=== PATIENT | male | born 1935 | race Caucasian/White ===

== ENCOUNTER 2016-05-20 10:33 | Day surgery (SDC) | payer MEDICARE, OTHER ==
[2016-05-20] VITALS (10 sets, daily range): BP systolic 124–157; BP diastolic 60–76; PULSE 53–78; RESP 14–18; O2SAT 94–100
[~2016-05-20] VITALS: Ht 193 cm; Wt 115.6 kg
[~2016-05-20 10:33] MED LIST: AMLO10TA3 PO; ASCO100089 PO; ASPI-973 PO; CALC-890 PO; CARV25TA2 PO; CHOL100043 PO; FURO80TA83 PO; GLPZ5T PO; LIP40 PO; MEGAKRILL PO; TERA2CAP4 PO; UBID100C PO; VIT1TABL83 PO; WARF5TAB7 PO; ZYL100 PO
[2016-05-20] MEDS ORDERED: Ondansetron 2 mg/mL 2 mL Inj ONE (10:34)
[2016-05-20] MEDS ORDERED: EPHEDrine/NS 5 mg/mL 5 mL Syringe ONE (10:34)
[2016-05-20] MEDS ORDERED: fentaNYL-PF 50 mCg/mL 2 mL Inj ONE (10:34)
[2016-05-20] MEDS ORDERED: Dexamethasone 4 mg/mL Inj ONE (10:34)
[2016-05-20] MEDS ORDERED: Propofol 10,000 mCg/mL 20 mL Inj ONE (10:34)
[2016-05-20] MEDS ORDERED: MetoCLOpramide 5 mg/mL 2 mL Inj ONE (10:34)
[2016-05-20] MEDS ORDERED: hydrALAZINE 20 mg/mL Inj ONE (10:34)
[2016-05-20] MEDS: Lactated Ringer's 1,000 ML IV SCH ×3 (11:15→12:58)
[2016-05-20] MEDS ORDERED: CeFAZolin Inj 2 gm / 50mL D5W IV ONE (11:41)
[2016-05-20] MEDS ORDERED: WARF5TAB PO (11:54)
[2016-05-20] MEDS ORDERED: hydrOXYzine Inj 25 MG/1 mL SDV IM ONE (12:41)
[2016-05-20] MEDS ORDERED: EPHEDrine Sulfate 50 mg/mL Inj ONE (12:42)
[2016-05-20] MEDS: CeFAZolin Inj 2 GM in IV Premix 1 EACH IV ONE ×2 (12:42→12:58)
[2016-05-20] MEDS ORDERED: MetoCLOpramide 5 mg/mL 2 mL Inj IVPUSH PRN (13:05)
[2016-05-20] MEDS ORDERED: Phenylephrine 10,000 mCg/mL Inj IVPUSH PRN (13:05)
[2016-05-20] MEDS ORDERED: Lactated Ringer's 1,000 ML IV SCH (13:05)
[2016-05-20] MEDS ORDERED: Lactated Ringer's 500 ML IV PRN (13:05)
[2016-05-20] MEDS ORDERED: fentaNYL-PF 50 mCg/mL 2 mL Inj IVPUSH PRN (13:05)
[2016-05-20] MEDS ORDERED: EPHEDrine Sulfate 50 mg/mL Inj IVPUSH PRN (13:05)
[2016-05-20] MEDS ORDERED: Atropine 0.4 mg/mL Inj IVPUSH PRN (13:05)
[2016-05-20] MEDS ORDERED: Ondansetron 2 mg/mL 2 mL Inj IVPUSH PRN (13:05)
[2016-05-20] MEDS ORDERED: hydrALAZINE 20 mg/mL Inj IVPUSH PRN (13:05)
[2016-05-20] MEDS ORDERED: Labetalol 5 mg/mL 4 mL Inj IV PRN (13:05)
--- NOTE | 2016-05-20 13:15 | PCM.HPANE ---
Patient Data Surgeon Admitting Provider: Attending Provider:Rupa Grady MD Primary Care Physician:Nader Romero MD Other Provider:[facility] Reason for Visit Bladder Tumor Ht/WT & BMI Height (Feet): 6 Height (Inches): 4 Weight (Kilograms): 115.6 Body Mass Index 31.00 Allergies Coded Allergies: ioversol (Verified Allergy, Severe, ANAPHYLAXIS, 05/15/16) codeine (Verified Allergy, Unknown, UNKNOWN, 05/15/16) iodine (Verified Allergy, Unknown, UNKNOWN, 05/15/16) iohexol (Verified Allergy, Unknown, UNKNOWN, 05/15/16) lactose (Verified Adverse Reaction, Severe, LACTOSE INTOLERANT, 05/15/16) Past Anesthesia History Anesthesia History: Denies:: Anesthesia Reactions, Malignant Hyperthermia Diabetes History Hx Diabetes?: Yes Type of Diabetes: Type II Glycemic Control: Oral Medication Current Bedside Blood Glucose: 128 MRSA MRSA: No Medications Blood Thinner: Aspirin and Coumadin Last Dose Blood Thinner: May 14, 2016 Hypertension Medication: Yes (LASIX,AMLODIPINE,TERAZOSIN) Home Meds Incl Beta Aleksandar: Yes Date Beta Aleksandar Taken: May 20, 2016 Time Beta Aleksandar Taken: 0700 Reported Medications Warfarin Sodium (Coumadin)5 Mg Tablet2.5 Mg PO WEDS, SUN #24 05/20/16 Terazosin 2 Mg Capsule2 Mg PO AM Ref 0 05/15/16 Cholecalciferol (Vitamin D3) (Vitamin D)1,000 Unit Tablet1,000 Unit PO DAILY #1 BOTTLE Ref 0 05/01/15 Terazosin 2 Mg Capsule4 Mg PO HS Ref 0 05/01/15 [Athenix] No Conflict Check1 Capsule PO DAILY 500MG 05/01/15 Atorvastatin (Lipitor)40 Mg Xkdvtc00 Mg PO DAILY Ref 0 05/01/15 Glipizide 5 Mg Tablet2.5 Mg PO DAILY 30 Days 05/01/15 Furosemide (Lasix)80 Mg Cyviec61 Mg PO DAILY 30 Days Ref 0 05/01/15 Ubidecarenone (Coenzyme Q10)100 Mg Zodemlk604 Mg PO DAILY 05/01/15 Carvedilol 25 Mg Xdgxax34 Mg PO BID Ref 0 05/01/15 Calcium Carbonate/Vitamin D3 (Calcium 600 + Vit D3 Tablet)1 Each Tablet1 Each PO BID 05/01/15 Vit B Comp/C/FA/Iron/Vit E (Vitamin B Complex Tablet)1 Each Tablet1 Each PO DAILY 05/01/15 Aspirin 81 Mg Iskdzt79 Mg PO DAILY Ref 0 05/01/15 Amlodipine 10 Mg Kqbacb77 Mg PO DAILY Ref 0 05/01/15 Allopurinol 100 Mg Nqiwft378 Mg PO DAILY Ref 0 05/01/15 Warfarin Sodium 5 Mg Tablet5 Mg PO 5XDAYS WEEK 30 Days Ref 0 05/01/15 Discontinued Reported Medications Ascorbic Acid (Vitamin C)1,000 Mg Tab.chew1,000 Mg PO DAILY Ref 0 05/01/15 History History of ENT Problems?: No Hx of Heart Problems?: Yes Cardiovascular History: Positive for:: Abdominal Aortic Aneurism (ASCENDING AORTA DILATED UP TO 4CM) Atrial Fibrillation (HX A FIB & FLUTTER) Cardiac Surgery (HEART CATH X2 2000, 2010 W/ STENTING) Chest Pain Edema (CHRONIC, PEDAL) Hypertension (HYPERLIPIDEMIA) Irregular Heartbeat (HX A FIB/FLUTTER) Peripheral Vascular (PAD) Valvular Heart Disease (MILD-MOD MR,MILD TR) Denies:: Heart Murmur (ECHO 11/2012 EF 60-65%) Hx of Respiratory Problem?: Yes Respiratory History: Positive for:: COPD (PFT 05/2011 SHOWS MOD. RESTRICTIVE DISEASE) Use of C-PAP Machine (JEFFREY+ W/ CPAP SLEEP STUDY 08/2002) Hx Neurologic Problems?: Yes Hx of GI Problems?: No Hx of Problems?: Yes Genitourinary History: Denies:: HX of Hemodialysis (HX CHRONIC RENAL INSUFFICIENCY) Other Pertinent History: S/P CYSTO/TURBT BLADDER TUMOR=CURRENT PROBLEM Male Hx: Positive for:: Prostate Problems (?HX PROSTATE CA?) Denies:: Scrotal Mass Testicular Surgery Skin History: Positive for:: History Skin Disorders? (S/P EXC FIBROID TUMORS FROM HEAD & FOOT) Denies:: Pressure Ulcers Hx Musculoskeletal Problems?: Yes Musculoskeletal History: Positive for:: Musculoskeletal Trauma (HX FX LEG) Denies:: Back Injury (C/OF BACK PAIN) Hx of Psycho/Social Problems?: Yes Psycho Social History: Positive for:: Anxiety Hx Surgeries?: Yes (HEART CATH/STENTING X2,EXC FIBROID TUMORS HEAD-FOOT,CYSTO/ TURBT) Hx Any Other Health Problems?: Yes Other History: Positive for:: Cancer (BLADDER, ??PROSTATE) Hospitalization (CARDIAC) Denies:: Endocrine Disease Thyroid Disease History Blood Transfusions: Denies:: Blood Transfusions Hx Diabetes: YesBedside Blood Glucose: 128 Hx Alcohol Use: No Smoking Status: Never Smoker Have You Smoked inLast 12 mo: No Stop/Bang S-Snoring: Do You Snore Loudly: No T-Tired: feel tired, fatigued: Yes O-Obsered: Observed not breath: No P-Blood Pressure: treated: Yes B- Body Mass Index > 35 kg/m2: No A- Age over 50: Yes N- Neck Large Circumference: Yes G- Gender Male: Yes JEFFREY Total Score: 5 Risk Assessment Category Category 1A: Patient has history of documented sleep apnea, and HAS NOT received any narcotic, sedative or anesthesia administration during this stay. Category 1B: Patient has history of documented sleep apnea, and HAS received any narcotic , sedative or anesthesia administration during this stay Category 2: Patient has SUSPECTED Obstructive Sleep Apnea, and HAS received any narcotic , sedative or anesthesia administration during this stay. Category 3: Patient has SUSPECTED Obstructive Sleep Apnea and HAS NOT received narcotic, sedative or anesthesia administration during this stay. Category 4: Outpatient in Procedural Areas with known sleep apnea or who screen positive for High Risk via the STOP/BANG questionnaire. Exam Exam Vital Signs Vital Signs Date Time Temp Pulse Resp B/P Pulse Ox O2 Delivery O2 Flow Rate FiO2 05/20/16 11:54 CPAP/BIPAP 05/20/16 11:18 35.6 69 18 151/76 97 Room Air General Appearance: Alert, Oriented X3, Cooperative, No Acute Distress HEENT/AIRWAY: MP 2, Neck Movement (FROM), Mouth Opening (3 FBMO) Lungs: Clear to Auscultation, Normal Air Movement Heart: Exam Unremarkable, Regular Rate/Rhythm, No Murmurs/Rubs/Gallops Meds/Labs/Diagnostics Admission Meds Current Medications Lactated Ringer's (Lr) 1,000 ml @ 120 mls/hr Q8H20M IV Last administered on t 11:15; Start 05/20/16 at 05:00; Stop 05/20/16 at 13:19 Bedside Blood Glucose: 128 Plan Impression Patient chart reviewed, patient interviewed and anesthestic plan with risks, benefits, and alternatives discussed, and informed consent obtained. NPO Status: 1700 05/19/16 ASA Physical Status: ASA3 Severe Disease (A fib) Anesthetic Plan: GA Bene/Risks/Altern/Consents: Yes HP Complete Prior to Induction: Yes Other Didn't want spinal Nader Olivo MD May 20, 2016 12:13
[2016-05-20] MEDS ORDERED: HYDROcodone-APAP 5-325 mg Tablet PO PRN (13:35)
--- NOTE | 2016-05-20 14:30 | PCM.ANEP1 ---
Post Anesthesia Phase 1 PACU Phase 1 Assessment Vital Signs Vital Signs Date Time Temp Pulse Resp B/P Pulse Ox O2 Delivery O2 Flow Rate FiO2 05/20/16 14:15 36.8 78 18 143/76 97 Room Air 05/20/16 14:02 36.2 54 16 128/60 94 Room Air 05/20/16 13:58 68 17 137/75 96 Room Air 05/20/16 13:50 63 14 144/68 98 Room Air 05/20/16 13:45 70 17 132/63 100 Simple Mask 8 05/20/16 13:40 53 14 128/71 100 Simple Mask 8 05/20/16 13:35 55 15 124/63 100 Simple Mask 8 05/20/16 13:30 36.1 129/61 05/20/16 11:54 CPAP/BIPAP 05/20/16 11:18 35.6 69 18 151/76 97 Room Air Anesthetic Administered: GA Level of Alertness: Awake, talking KELLY's with Equal Strength: Yes Pain: No Nausea or Vomiting: No Oxygen Delivery: Simple Mask Lungs: Clear to Auscultation, Normal Air Movement Dermatome Level: Full Sensation Nader Olivo MD May 20, 2016 14:30
--- NOTE | 2016-05-20 14:30 | PCM.ANEP2 ---
Post Anesthesia Evaluation ASA/CMS Post Anesthesia VS in Patient's Normal Range?: Yes Resp Stable; Airway Patent?: Yes CV Function & Hydration Stable: Yes Mental Status Recovered?: Yes Pain control Satisfactory?: Yes N/V Control Satisfactory?: Yes Nader Olivo MD May 20, 2016 14:30
--- NOTE | 2016-05-20 15:30 | OP ---
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 POSTOPERATIVE DIAGNOSIS(ES): Transitional cell carcinoma of the bladder. PROCEDURE: Cystoscopy, bladder biopsy and transurethral resection of bladder tumor. ANESTHESIA: General anesthetic, Dr. Olivo. DESCRIPTION OF PROCEDURE: Under general anesthetic, the patient placed in lithotomy position. Genitalia prepped and draped in a sterile manner. A 22-South Sudanese cystoscope was introduced through a normal anterior urethra. There was a bladder neck contracture present. On the posterior wall were two areas of erythema. Using the cup biopsy forceps, these areas were biopsied. The urethra was then dilated to 30-South Sudanese with Adele sounds. A 26-South Sudanese Cunningham type resectoscope was introduced into the bladder. The remaining tumor was resected and the base is cauterized. After removal of the specimen achieving hemostasis, it was elected not to leave a Ta catheter in place. The patient tolerated the procedure well and left the operating room in good condition.
--- NOTE | 2016-05-25 14:44 | PATH ---
SURGICAL PATHOLOGY Attending Physician:Rupa Grady MD () CASE STATUS: Signed Out PATIENT NAME: TITUS TAYLOR PID: [id number] : 1935 DATE COLLECTED:05/20/2016 00:00 SPECIMEN: Bladder, Biopsy CLINICAL HISTORY: BLADDER TUMOR 1). BLADDER CANCER TUMOR POSTERIOR WALL FINAL DIAGNOSIS: 1.BLADDER CANCER TUMOR, POSTERIOR WALL, BIOPSY: MILD CHRONIC ACTIVE CYSTITIS. No evidence of malignancy or dysplasia. ICD10 code Z85.51 GROSS DESCRIPTION: The specimen is received in one formalin filled container labeled with the patient's name, sublabeled "bladder tumor posterior wall" and consists of 2 portions of tissue which aggregate to 0.4 x 0.4 x 0.3 CM. The specimen is entirely submitted in one cassette. 05/21/2016 [facility] MICRO DESCRIPTION: See diagnosis. ICD-9 CODES: CPT CODES: 1: 86538 Electronically Signed Out Nicola Knox MD [facility] [address], [place] [address] Technical component performed at [facility], [facility] [address], [place], [address]
== END 2016-05-20 23:59 | disposition home or self-care (01) ==
LOC: SAS 10:33
PROVIDERS: ATTEND Urology
DX: N30.20 Other chronic cystitis without hematuria (principal); I25.10 Atherosclerotic heart disease of native coronary artery without angina pectoris; I71.4 Abdominal aortic aneurysm, without rupture; I12.9 Hypertensive chronic kidney disease with stage 1 through stage 4 chronic kidney disease, or unspecified chronic kidney disease; E11.22 Type 2 diabetes mellitus with diabetic chronic kidney disease; N18.9 Chronic kidney disease, unspecified; I44.0 Atrioventricular block, first degree; R00.1 Bradycardia, unspecified; G47.33 Obstructive sleep apnea (adult) (pediatric); J44.9 Chronic obstructive pulmonary disease, unspecified; I73.9 Peripheral vascular disease, unspecified; F41.9 Anxiety disorder, unspecified; E87.5 Hyperkalemia; Z85.46 Personal history of malignant neoplasm of prostate; Z95.5 Presence of coronary angioplasty implant and graft; Z79.82 Long term (current) use of aspirin; Z79.84 Long term (current) use of oral hypoglycemic drugs; Z79.01 Long term (current) use of anticoagulants; Z85.51 Personal history of malignant neoplasm of bladder
CPT/HCPCS: 52234; J0360; J0690; J1100; J1885; J2405; J2765; J3010; J3410; J7120

== ENCOUNTER 2016-10-21 10:23 | Day surgery (SDC) | payer MEDICARE, OTHER ==
[2016-10-21] VITALS (12 sets, daily range): BP systolic 128–149; BP diastolic 57–72; PULSE 58–95; RESP 14–16; O2SAT 95–100
[~2016-10-21] VITALS: Ht 193 cm; Wt 115.6 kg
[~2016-10-21 10:23] MED LIST changes: -ASCO100089 PO; -ASPI-973 PO; -CHOL100043 PO; +FUR20 PO; -FURO80TA83 PO; +GLIP2.5T2 PO; -GLPZ5T PO; -MEGAKRILL PO; -UBID100C PO; +VITAMIN C ROSE HIPS; +megakrill
[2016-10-21] MEDS ORDERED: MetoCLOpramide 5 mg/mL 2 mL Inj ONE (10:24)
[2016-10-21] MEDS ORDERED: fentaNYL-PF 50 mCg/mL 2 mL Inj ONE (10:24)
[2016-10-21] MEDS ORDERED: Dexamethasone 4 mg/mL Inj ONE (10:24)
[2016-10-21] MEDS ORDERED: Ondansetron 2 mg/mL 2 mL Inj ONE (10:24)
[2016-10-21] MEDS ORDERED: Propofol 10,000 mCg/mL 20 mL Inj ONE (10:24)
[2016-10-21] MEDS: Lactated Ringer's 1,000 ML IV SCH ×2 (10:51→13:08)
[2016-10-21 11:33] LABS: INR 1.04 ratio
--- NOTE | 2016-10-21 12:44 | PCM.HPANE ---
Patient Data Surgeon Admitting Provider: Attending Provider:Marissa Dhaliwal MD Primary Care Physician:Nader Romero MD Other Provider:[facility] Anest[facility] Reason for Visit Bladder Cancer Ht/WT & BMI Height (Feet): 6 Height (Inches): 4 Weight (Kilograms): 115.6 Body Mass Index 31.00 Allergies Coded Allergies: ioversol (Verified Allergy, Severe, ANAPHYLAXIS, 10/16/16) codeine (Verified Allergy, Unknown, UNKNOWN, 10/16/16) iodine (Verified Allergy, Unknown, UNKNOWN, 10/16/16) iohexol (Verified Allergy, Unknown, UNKNOWN, 10/16/16) lactose (Verified Adverse Reaction, Severe, LACTOSE INTOLERANT, 05/15/16) Past Anesthesia History Anesthesia History: Denies:: Abnormal Airway, Anesthesia Reactions (PONV hx), Difficult Intubation, Malignant Hyperthermia Diabetes History Hx Diabetes?: Yes Type of Diabetes: Type II Glycemic Control: Oral Medication Current Bedside Blood Glucose: 124 MRSA MRSA: No Medications Blood Thinner: Aspirin and Coumadin Hypertension Medication: Yes Home Meds Incl Beta Aleksandar: Yes Date Beta Aleksandar Taken: Oct 21, 2016 Time Beta Aleksandar Taken: 0700 Reported Medications Warfarin Sodium 5 Mg Tablet2.5 Mg PO wed, wed 30 Days Ref 0 10/16/16 Warfarin Sodium 5 Mg Tablet5 Mg PO 5xweekly 30 Days Ref 0 10/16/16 [vitamin c sybil hips] No Conflict Check1,000 Mg DAILY 10/16/16 Terazosin 2 Mg Capsule4 Mg PO HS Ref 0 10/16/16 Terazosin 2 Mg Capsule2 Mg PO QAM Ref 0 10/16/16 [megakrill] No Conflict Rpuap684 Mg DAILY 10/16/16 Atorvastatin (Lipitor)40 Mg Szhyqw93 Mg PO DAILY Ref 0 10/16/16 Glipizide ER 2.5 Mg Tab.er.242.5 Mg PO DAILY 10/16/16 Furosemide 20 Mg Cak185 Mg PO DAILY 30 Days Ref 0 10/16/16 Carvedilol 25 Mg Yqxajk24 Mg PO BID Ref 0 10/16/16 Calcium Carbonate/Vitamin D3 (Calcium 600 + Vit D3 Tablet)1 Each Tablet2 Each PO DAILY 10/16/16 Vit B Comp/C/FA/Iron/Vit E (Vitamin B Complex Tablet)1 Each Tablet1 Each PO DAILY 10/16/16 Amlodipine 10 Mg Lqatam52 Mg PO DAILY Ref 0 10/16/16 Allopurinol 100 Mg Etgytc831 Mg PO DAILY Ref 0 10/16/16 Discontinued Reported Medications Warfarin Sodium (Coumadin)5 Mg Tablet2.5 Mg PO WEDS, WED #24 05/20/16 Terazosin 2 Mg Capsule2 Mg PO AM Ref 0 05/15/16 Cholecalciferol (Vitamin D3) (Vitamin D)1,000 Unit Tablet1,000 Unit PO DAILY #1 BOTTLE Ref 0 05/01/15 Terazosin 2 Mg Capsule4 Mg PO HS Ref 0 05/01/15 [RF Arrays] No Conflict Check1 Capsule PO DAILY 500MG 05/01/15 Atorvastatin (Lipitor)40 Mg Cjzpno77 Mg PO DAILY Ref 0 05/01/15 Glipizide 5 Mg Tablet2.5 Mg PO DAILY 30 Days 05/01/15 Furosemide (Lasix)80 Mg Dehabe45 Mg PO DAILY 30 Days Ref 0 05/01/15 Ubidecarenone (Coenzyme Q10)100 Mg Tkhkxfs174 Mg PO DAILY 05/01/15 Carvedilol 25 Mg Abodcl08 Mg PO BID Ref 0 05/01/15 Calcium Carbonate/Vitamin D3 (Calcium 600 + Vit D3 Tablet)1 Each Tablet1 Each PO BID 05/01/15 Vit B Comp/C/FA/Iron/Vit E (Vitamin B Complex Tablet)1 Each Tablet1 Each PO DAILY 05/01/15 Aspirin 81 Mg Enbals39 Mg PO DAILY Ref 0 05/01/15 Amlodipine 10 Mg Qbakkc87 Mg PO DAILY Ref 0 05/01/15 Allopurinol 100 Mg Kxdeal962 Mg PO DAILY Ref 0 05/01/15 Warfarin Sodium 5 Mg Tablet5 Mg PO 5XDAYS WEEK 30 Days Ref 0 05/01/15 History History of ENT Problems?: No HEENT History: Denies:: Abnormal Airway Cataracts Difficult Intubation Dysphagia Glaucoma Hearing Problem Sinus Problem TMJ Denture Type: None Teeth Condition: Within Normal Limits Hx of Heart Problems?: Yes Cardiovascular History: Positive for:: Abdominal Aortic Aneurism (ASCENDING AORTA DILATED UP TO 4CM) Atrial Fibrillation (atrial flutter) Cardiac Surgery (2010- ) Chest Pain Edema (lower legs- ) Hypertension Irregular Heartbeat (a flutter ) Valvular Heart Disease (echo 2012- ef 60-65%) Denies:: Heart Murmur Other Cardiac History: pt has not been taking either coumadin or aspirin since onset of hematuria- 08/2016 Other History/Comments cARDIAC STENTS PLACED 10 YEARS AGO, ACTIVE WALKER SINCE BEFORE THE BLADDER BLEEDING Hx of Respiratory Problem?: Yes Respiratory History: Positive for:: Use of C-PAP Machine Denies:: Asthma COPD Emphysema Pneumonia Tuberculosis Hx Neurologic Problems?: No Neurological History: Denies:: CVA Dizziness Headaches Multiple Sclerosis Parkinson's Disease Seizures TIA Hx of GI Problems?: No Gastrointestinal History: Denies:: Cirrhosis Diverticulitis Gall Bladder Disease Gastroesphageal Reflux Gastrointestinal Bleeding Heartburn Hepatitis Hiatal Hernia Liver Disease Rectal Bleeding Hx of Problems?: Yes Genitourinary History: Denies:: HX of Hemodialysis (CKD stage IV) Kidney Stones Urinary Tract Infection Other Pertinent History: hematuria current admission problem- now has indwelling maynard Male Hx: Positive for:: Prostate Problems (hx prostatectomy) Denies:: Scrotal Mass Testicular Surgery Skin History: Denies:: History Skin Disorders? Pressure Ulcers Hx Musculoskeletal Problems?: No Musculoskeletal History: Positive for:: Musculoskeletal Trauma (prior hx leg fx) Denies:: Back Injury Degenerative Joint Fibromyalgia Myasthenia Gravis Osteoarthritis Hx of Psycho/Social Problems?: Yes Psycho Social History: Positive for:: Anxiety Hx Surgeries?: Yes (fibroid tumors, prostatectomy) Hx Any Other Health Problems?: Yes Other History: Positive for:: Cancer (bladder, prostate) Hospitalization (CARDIAC) Denies:: Endocrine Disease Thyroid Disease History Blood Transfusions: Denies:: Blood Transfusions Hx Diabetes: YesBedside Blood Glucose: 124 Hx Alcohol Use: NoHx Substance Use: No Smoking Status: Never Smoker Have You Smoked inLast 12 mo: No Stop/Bang Treated for Sleep Apnea?: Yes Do You Have a CPAP Machine?: Yes P-Blood Pressure: treated: Yes B- Body Mass Index > 35 kg/m2: No A- Age over 50: Yes N- Neck Large Circumference: No G- Gender Male: Yes Risk Assessment Category Category 1A: Patient has history of documented sleep apnea, and HAS NOT received any narcotic, sedative or anesthesia administration during this stay. Category 1B: Patient has history of documented sleep apnea, and HAS received any narcotic , sedative or anesthesia administration during this stay Category 2: Patient has SUSPECTED Obstructive Sleep Apnea, and HAS received any narcotic , sedative or anesthesia administration during this stay. Category 3: Patient has SUSPECTED Obstructive Sleep Apnea and HAS NOT received narcotic, sedative or anesthesia administration during this stay. Category 4: Outpatient in Procedural Areas with known sleep apnea or who screen positive for High Risk via the STOP/BANG questionnaire. Exam Exam Vital Signs Vital Signs Date Time Temp Pulse Resp B/P Pulse Ox O2 Delivery O2 Flow Rate FiO2 10/21/16 10:51 36.4 72 16 143/71 98 Room Air General Appearance: Alert, Oriented X3, Cooperative HEENT/AIRWAY: MP 2 Lungs: Clear to Auscultation Heart: Exam Unremarkable Meds/Labs/Diagnostics Admission Meds Current Medications Lactated Ringer's (Lr) 1,000 ml @ 120 mls/hr Q8H20M IV Last administered on t 10:51; Start 10/21/16 at 05:00; Stop 10/21/16 at 13:19 Bedside Blood Glucose: 124 Labs Test 10/21/16 11:05 Prothrombin Time 11.1sec (8.1-12.5) Prothromb Time International Ratio 1.04ratio Plan Impression Patient chart reviewed, patient interviewed and anesthestic plan with risks, benefits, and alternatives discussed, and informed consent obtained. Tadeo Campos MD Oct 21, 2016 12:43
[2016-10-21] MEDS ORDERED: Lactated Ringer's 500 ML IV PRN (13:33)
[2016-10-21] MEDS ORDERED: Lactated Ringer's 1,000 ML IV SCH (13:33)
[2016-10-21] MEDS ORDERED: fentaNYL-PF 50 mCg/mL 2 mL Inj IVPUSH PRN (13:35)
[2016-10-21] MEDS ORDERED: MetoCLOpramide 5 mg/mL 2 mL Inj IVPUSH PRN (13:35)
[2016-10-21] MEDS ORDERED: Ondansetron 2 mg/mL 2 mL Inj IVPUSH PRN (13:35)
[2016-10-21] MEDS ORDERED: HYDROmorphone 1 mg/mL Inj IVPUSH PRN (13:35)
[2016-10-21] MEDS ORDERED: EPHEDrine Sulfate 50 mg/mL Inj IVPUSH PRN (13:35)
[2016-10-21] MEDS ORDERED: Dexamethasone 4 mg/mL Inj IVPUSH PRN (13:35)
[2016-10-21] MEDS ORDERED: Phenylephrine 10,000 mCg/mL Inj IVPUSH PRN (13:35)
--- NOTE | 2016-10-21 14:28 | OP ---
[address] [address] OPERATIVE REPORT PATIENT: TITUS TAYLOR : 1935 MR#: [id number] ADMIT: 10/21/2016 JOB ID: [id number] DATE OF SURGERY: 10/21/2016 PREOPERATIVE DIAGNOSIS(ES): Bladder tumor. POSTOPERATIVE DIAGNOSIS(ES): Bladder tumor. PROCEDURE PERFORMED: 1. Rectal examination under anesthesia. 2. Transurethral resection of bladder tumor (approximately 3-4 cm). SURGEON: Marissa Dhaliwal M.D. MECHANICAL ARTIST: None. FINDINGS: 1. Suspicious rectal examination under anesthesia. There is a fixed mass within the prostatic fossa as well as right lateral and inferior to it and it seems to be within the rectal wall as well. It is quite nodular. The mass within the prostatic fossa is fixed and firm. 2. Bilateral orthotopic ureteral orifices. 3. Nodular and friable tumor along the right lateral wall/base of the bladder just lateral to the trigone. ANESTHESIA: General. ESTIMATED BLOOD LOSS: Less than 2 mL. DRAINS: An 18-Egyptian Ta catheter. SPECIMENS: Bladder lesion. COMPLICATIONS: None. CONDITION: Stable. INDICATIONS FOR PROCEDURE: The patient is a 80-year-old man with a history of radical prostatectomy for prostate cancer. He does have recurrent PSA in the 4s range. He presents today in referral by Dr. Rupa Grady for the aforementioned procedure. DESCRIPTION OF PROCEDURE: After informed consent, the patient was taken to the operating room. A time-out was performed, identifying correct patient, surgical site and procedure. General anesthesia was induced. He was placed in the lithotomy position and all pressure points were identified and appropriately padded. A rectal examination was performed. Findings were aforementioned. His genitals were then prepped and draped in the usual sterile fashion. A 26-Egyptian resectoscope was then placed under direct vision into the patient's bladder. The bladder systematically inspected with both 30 and 70 degree lenses. The tumor along the right lateral wall and base was quite friable appearing. It was resected in piecemeal fashion with a 24-Egyptian loop. This was passed off the table as a bladder lesion. At the end of the procedure, there was excellent hemostasis as the base of tumor as well as the surrounding normal mucosa was cauterized. All of the specimens had been removed at the end of the procedure. An 18-Egyptian coude catheter was placed and set to dependent drainage. The patient appeared to tolerate the procedure well without apparent complications. MELA
[2016-10-21] MEDS: HYDROcodone-APAP 5-325 mg Tablet PO PRN ×2 (14:52→16:13)
--- NOTE | 2016-10-21 15:29 | PCM.ANEP1 ---
Post Anesthesia PACU Phase 1 Assessment Vital Signs Vital Signs Date Time Temp Pulse Resp B/P Pulse Ox O2 Delivery O2 Flow Rate FiO2 10/21/16 14:35 36.8 70 16 139/64 96 Room Air 10/21/16 14:30 68 14 143/60 96 Room Air 10/21/16 14:25 70 14 146/70 97 Room Air 10/21/16 14:20 67 14 142/69 98 Room Air 10/21/16 14:15 64 15 138/72 100 Room Air 10/21/16 14:10 63 14 149/69 100 Simple Mask 8 10/21/16 14:05 36.6 60 15 140/63 100 Simple Mask 8 10/21/16 14:00 62 16 145/59 99 Simple Mask 8 10/21/16 13:55 58 15 128/65 98 Simple Mask 8 10/21/16 13:50 37.1 62 16 129/58 96 Simple Mask 8 10/21/16 10:51 36.4 72 16 143/71 98 Room Air Anesthetic Administered: GA Level of Alertness: Awake, talking KELLY's with Equal Strength: Yes Pain: No Nausea or Vomiting: No CV Function & Hydration Stable: Yes Airway Device: Oxygen Delivery: Simple Mask Lungs: Clear to Auscultation Dermatome Level: T2 ([place]) PACU Phase 2 Assessment Complications: No Follow up Care: No Patient Instructions Provided: N/A Tadeo Campos MD Oct 21, 2016 15:29
--- NOTE | 2016-10-28 17:58 | PATH ---
SURGICAL PATHOLOGY Attending Physician:Marissa Dhaliwal, CASE STATUS: Signed Out PATIENT NAME: TITUS TAYLOR PID: [id number] : 1935 DATE COLLECTED:10/21/2016 23:30 SPECIMEN: Bladder, Biopsy CLINICAL HISTORY: BLADDER CANCER 1). BLADDER LESIONS FINAL DIAGNOSIS: Bladder Lesions, Transurethral Resection of Bladder Tumor: - High-grade, poorly differentiated carcinoma, with immunophenotype consistent with prostatic primary, see microscopic description. - Lymphovascular invasion: not identified. - Muscularis propria: not identified. ICD10: C67.9 GROSS DESCRIPTION: The specimen is received in one formalin filled container labeled with the patient's name, sublabeled "bladder lesion" and consists of multiple portions of mcfadden frederick to frederick-brown friable tissue which aggregate to 2.0 x 1.5 x 0.3 CM. The specimen is filtered and entirely submitted in one cassette. 10/22/2016DC MICRO DESCRIPTION: The patient's prior history of prostatic adenocarcinoma is noted. Immunohistochemical stains are performed to evaluate the nature of the neoplastic cells. The neoplastic cells are positive for prostate specific antigen (PSA) and negative for GATA3, CDX2, CK7, CK20, p40, Uroplakin III and CK5/6. The control stains show appropriate reactivity. Overall based on the morphology, immunohistochemical staining profile and the clinical history, the findings are compatible with a prostatic primary. As part of routine quality assurance qa lab technician the case was also reviewed by Dr. Ledesma who agrees with the above diagnosis. ICD-9 CODES: CPT CODES: 1: 69018, 91553, 60263, 75912, 61666, 80938, 51217, 63663, 57244 Electronically Signed Out Duane Bridges MD [facility] [address], [place] [address] Technical component performed at [facility], [address] [place] [address] Ave[address], [place], [address]
== END 2016-10-21 23:59 | disposition home or self-care (01) ==
LOC: SAS 10:23
PROVIDERS: ATTEND Urology
DX: C67.9 Malignant neoplasm of bladder, unspecified (principal); R31.0 Gross hematuria; I12.9 Hypertensive chronic kidney disease with stage 1 through stage 4 chronic kidney disease, or unspecified chronic kidney disease; I25.10 Atherosclerotic heart disease of native coronary artery without angina pectoris; E78.5 Hyperlipidemia, unspecified; I45.5 Other specified heart block; E11.22 Type 2 diabetes mellitus with diabetic chronic kidney disease; N18.9 Chronic kidney disease, unspecified; F41.9 Anxiety disorder, unspecified; Z95.5 Presence of coronary angioplasty implant and graft; Z79.82 Long term (current) use of aspirin; Z79.84 Long term (current) use of oral hypoglycemic drugs; Z79.01 Long term (current) use of anticoagulants; Z85.46 Personal history of malignant neoplasm of prostate
CPT/HCPCS: 36415; 45990; 52235; 85610; J0690; J1100; J2250; J2405; J2704; J2765; J3010; J7120